=== PATIENT | male | born 1960 | race Caucasian/White ===

== ENCOUNTER 2019-09-21 09:52 | Day surgery (SDC) | payer MEDICARE, MEDICAID ==
[2019-09-20 16:25] LABS: BASOPHILS % (AUTO) 0.6 % (0-1); EOSINOPHILS # (AUTO) 0.3 X10'3 (0-0.9); EOSINOPHILS % (AUTO) 4.2 % (0-6); HEMATOCRIT 45.7 % (42.0-52.0); LYMPHOCYTES # (AUTO) 2.6 X10'3 (1.1-4.8); LYMPHOCYTES % (AUTO) 41.1 % (21-51); MEAN CORPUSCULAR HEMOGLOBIN 30.1 PG (27.0-31.0); MEAN CORPUSCULAR HGB CONC 32.8 g/dL (33.0-36.5); MEAN CORPUSCULAR VOLUME 91.7 FL (78-98); MEAN PLATELET VOLUME 8.9 FL (7.4-10.4); MONOCYTES # (AUTO) 0.6 X10'3 (0-0.9); MONOCYTES % (AUTO) 9.2 % (2-12); NEUTROPHILS # (AUTO) 2.8 X10'3 (1.8-7.7); NEUTROPHILS % (AUTO) 44.9 % (42-75); PLATELET COUNT 212 X10'3 (140-440); RED BLOOD COUNT 4.98 X10'6 (4.70-6.10); WHITE BLOOD COUNT 6.3 X10'3 (4.5-11.0)
[2019-09-20 16:40] LABS: ALBUMIN 4.4 G/DL (3.4-5.0); ANION GAP 11 (8-16); BLOOD UREA NITROGEN 19 MG/DL (7-18); BUN/CREATININE RATIO 11.2 (5.4-32.0); CALCIUM 9.7 MG/DL (8.5-10.1); CHLORIDE 106 MMOL/L (99-107); GLUCOSE 104 MG/DL (70-104); POTASSIUM 4.4 MMOL/L (3.5-5.1); SODIUM 142 MMOL/L (135-145); TOTAL CARBON DIOXIDE 24.7 MMOL/L (24-32); eGFR 42 ML/MIN
[2019-09-21] VITALS (10 sets, daily range): BP systolic 112–140; BP diastolic 57–68
[~2019-09-21] VITALS: Ht 160 cm; Wt 89.2 kg
[~2019-09-21 09:52] MED LIST: ATEN50TA PO; ATOR20TA PO; FENO134C PO; FERR-86 PO; FLEC100T2 PO; HYDR-3965 PO; IBUP-1986 PO; LORA10TA7 PO; LOSA25TA41 PO; LOSA50TA3 PO; OMEP20CA15 PO
[2019-09-21] MEDS ORDERED: normal saline 1000ml 1,000 ML IV SCH ×2 (10:15→13:40)
[2019-09-21] MEDS ORDERED: cefazolin/dext.iso 2gm/100ml 100 ML IV ONE (10:15)
[2019-09-21] MEDS ORDERED: RANI150T8 PO (10:57)
[2019-09-21] MEDS ORDERED: [UNRECOGNIZED DRUG - CODE] (10:58)
[2019-09-21] MEDS ORDERED: ASPI-1130 PO (10:58)
[2019-09-21] MEDS ORDERED: AMLO5TAB16 PO (10:58)
[2019-09-21] MEDS ORDERED: HYDR-3972 PO (11:00)
[2019-09-21] MEDS ORDERED: fentaNYL/PF 50MCG/1 ML 2ML syringe ONE (11:32)
[2019-09-21] MEDS ORDERED: ceFAZolin 1000mg inj ONE (11:32)
[2019-09-21] MEDS ORDERED: LIDOcaine 1% W/epiNEPHrine 1:100,000 20ml vial ONE (11:32)
[2019-09-21] MEDS ORDERED: midazolam 2 mg/2 ml injection ONE (11:32)
[2019-09-21] MEDS ORDERED: pneumococcal 23-VAL P-sac vacc 25 mcg/0.5ml vial IMVAC ONE (13:00)
[2019-09-21] MEDS ORDERED: vancomycin/NS 1 GM ADD-VANTAGE 250 ML IV ONE (13:40)
--- NOTE | 2019-09-21 16:07 | NUR ---
Called Dr. Castillo to report on pt's status. Order received to discharge pt at 1700 instead of 1800.
== END 2019-09-21 17:00 | disposition home or self-care (01) ==
LOC: SSTAY O 09:52 → MED 3N 09:53 → SSTAY O 17:00
PROVIDERS: ATTEND Internal Medicine Cardiovascular Disease
DX: Z45.010 Encounter for checking and testing of cardiac pacemaker pulse generator [battery] (principal); E11.9 Type 2 diabetes mellitus without complications; I10 Essential (primary) hypertension; E78.5 Hyperlipidemia, unspecified; I25.10 Atherosclerotic heart disease of native coronary artery without angina pectoris; I48.0 Paroxysmal atrial fibrillation; G47.30 Sleep apnea, unspecified; Z91.041 Radiographic dye allergy status; Z91.013 Allergy to seafood; Z23 Encounter for immunization
CPT/HCPCS: 33228; 36415; 80048; 85025; 90471; 90732; 93005; 99152; 99153; C1785; J0690; J2250; J3010; J3370; J7030; A4620; A6449

== ENCOUNTER 2021-01-26 14:34 | Emergency (ER) | payer MEDICARE, MEDICAID ==
[~2021-01-26] VITALS: Ht 160 cm; Wt 85.5 kg
[~2021-01-26 14:34] MED LIST changes: +AMLO5TAB16 PO; +ASPI-1397 PO; -FERR-86 PO; -HYDR-3965 PO; +HYDR-3972 PO; -IBUP-1986 PO; -OMEP20CA15 PO; +RANI150T8 PO; +[UNRECOGNIZED DRUG - CODE]
[2021-01-26] MEDS ORDERED: ondansetron 4mg rapidly disintigrating tab PO ONE (14:50)
[2021-01-26 15:15] VITALS: BP 142/78
[2021-01-26] MEDS ORDERED: AZIT500T PO (16:30)
[2021-01-26] MEDS ORDERED: ALBU6.7H9 INH (16:30)
[2021-01-26] MEDS ORDERED: DEXA4TAB67 PO (16:30)
== END 2021-01-26 16:48 | disposition home or self-care (01) ==
LOC: ER 14:35
DX: U07.1 COVID-19 (principal); J40 Bronchitis, not specified as acute or chronic; I10 Essential (primary) hypertension; E11.9 Type 2 diabetes mellitus without complications; G89.29 Other chronic pain; Z95.0 Presence of cardiac pacemaker; Z85.9 Personal history of malignant neoplasm, unspecified; Z79.82 Long term (current) use of aspirin; Z79.899 Other long term (current) drug therapy; Z79.2 Long term (current) use of antibiotics
CPT/HCPCS: 71045; 87635; 99284; C9803